=== PATIENT | male | born 1995 | race Caucasian/White ===

== ENCOUNTER 2017-02-27 11:51 | Emergency (ER) | payer OTHER ==
[~2017-02-27] VITALS: Ht 180.3 cm; Wt 61.0 kg
[2017-02-27] MEDS ORDERED: LITHIUM CARBON300 MG PO (13:43)
[2017-02-27] MEDS ORDERED: ZITHROMAX500 MG PO (13:56)
[2017-02-27 14:24] VITALS: BP 112/79
== END 2017-02-27 14:25 | disposition home or self-care (01) ==
LOC: EME 11:51
DX: J02.0 Streptococcal pharyngitis (principal); F17.200 Nicotine dependence, unspecified, uncomplicated
CPT/HCPCS: 87651 90; 99281; 99283

== ENCOUNTER 2018-01-19 15:08 | Emergency (ER) | payer OTHER ==
[~2018-01-19] VITALS: Ht 185.4 cm; Wt 61.2 kg
[~2018-01-19 15:08] MED LIST: LITHIUM CARBON300 MG PO; ZITHROMAX500 MG PO
[2018-01-19 15:13] VITALS: BP 113/95
== END 2018-01-19 16:25 | disposition left against medical advice (07) ==
LOC: EME 15:08
DX: Z04.8 Encounter for examination and observation for other specified reasons (principal); Z53.21 Procedure and treatment not carried out due to patient leaving prior to being seen by health care provider